=== PATIENT | female | born 1970 | race Caucasian/White ===

== ENCOUNTER → 2018-01-04 | Outpatient (CLI) | payer BC ==
[~2018-01-04] MED LIST: ACE3 PO; AMOX-559 PO; CYCL10TA29 PO; DESO1TAB41 PO; FERR-1 PO; FOLIC ACID PO; HYDR-4225 PO; IBU800 PO; KET10 PO; KETO-58 PO; LOR5/325 PO; LORA-1456 PO; NEXIUM; OXYC-865 PO; PRENATAL VITAMINS; PRO25 PO; PULMICORT; SINGULAIR
--- NOTE | 2018-01-04 10:51 | RADIOLOGY IMAGING REPORT ---
FACILITY: [facility] PATIENT NAME: XAVIER KIM : [id number] MR: [id number] V: [id number] EXAM DATE: ORDERING PHYSICIAN: KACI TOSCANO TECHNOLOGIST: Laura Recio PROCEDURE:BILATERAL DIGITAL SCREENING MAMMOGRAM WITH CAD ASSISTED INTERPRETATION & 3D TOMOSYNTHESIS COMPARISON:Prior mammograms 01/09/16, 04/20/13, 04/13/13. INDICATIONS:SCREENING FINDINGS: Moderately dense heterogeneous fibroglandular tissue is seen throughout the breasts. There is a nodular area of increased density in the inferior aspect of the Right breast in the Right MLO view in the middle 1/3 maybe in the lateral portion Right breast on the Right CC view. Spot compression view is recommended for further evaluation. The parenchymal pattern through the Left breast has remained stable. DIAGNOSTIC CATEGORY 0--INCOMPLETE: NEED ADDITIONAL IMAGING EVALUATION. RECOMMENDATIONS: ADDITIONAL MAMMOGRAPHIC VIEWS REQUIRED: RIGHT BREAST. IMPRESSION: BIRADS 0: Incomplete. Additional view of the Right breast recommended as described. Dictated by: Farida Sánchez M.D. on 01/04/2018 at 10:30 Transcribed by: MILE on 01/04/2018 at 10:43 Approved by: Farida Sánchez M.D. on 01/04/2018 at 10:50 [facility]
== END ==
LOC: MAMO 00:39
PROVIDERS: ATTEND Nurse Practitioner Psychiatric/Mental Health
DX: R92.2 Inconclusive mammogram (principal)
CPT/HCPCS: 77063; 77067

== ENCOUNTER → 2018-03-14 | Outpatient (CLI) | payer BC ==
--- NOTE | 2018-03-15 09:18 | RADIOLOGY IMAGING REPORT ---
FACILITY: [facility] [place] PATIENT NAME: XAVIER KIM : [id number] MR: [id number] V: [id number] EXAM DATE: ORDERING PHYSICIAN: KACI TOSCANO TECHNOLOGIST: Laura Recio PROCEDURE:RIGHT DIGITAL DIAGNOSTIC MAMMOGRAM WITH CAD ASSISTED INTERPRETATION & 3D TOMOSYNTHESIS COMPARISON:Prior mammograms 01/04/18, 01/09/16, 04/20/13, 04/13/13. INDICATIONS:further evaluation FINDINGS: The patient returns for Spot compression views in the Right CC & MLO projections. The focal area of increased density in the inferior portion of the Right breast appeared compressible and apparently represented summation shadow. There is no demonstration of malignant appearing mass or calcification in the Right breast. DIAGNOSTIC CATEGORY 2--BENIGN FINDING. RECOMMENDATIONS: ROUTINE MAMMOGRAM AND CLINICAL EVALUATION. IMPRESSION: BIRADS 2: Benign finding. No significant abnormality is seen. Dictated by: Farida Sánchez M.D. on 03/14/2018 at 16:57 Transcribed by: MILE on 03/15/2018 at 7:52 Approved by: Farida Sánchez M.D. on 03/15/2018 at 9:17 [facility]
== END ==
LOC: MAMO 01:00
PROVIDERS: ATTEND Nurse Practitioner Psychiatric/Mental Health
DX: R92.8 Other abnormal and inconclusive findings on diagnostic imaging of breast (principal)
CPT/HCPCS: 77061; 77065

== ENCOUNTER → 2018-06-06 | Outpatient (CLI) | payer BC ==
--- NOTE | 2018-06-06 09:53 | RADIOLOGY IMAGING REPORT ---
FACILITY: [facility] [place] PATIENT NAME: Radha Oscar : 1970 MR: [id number] V: [id number] EXAM DATE: ORDERING PHYSICIAN: KACI TOSCANO TECHNOLOGIST: Location: [facility] [place] Patient: Radha Oscar : 1970 Visit/Account:[id number] Date of Sevice: 06/06/2018 PELVIC HISTORY: Dysfunctional uterine bleeding TECHNIQUE: Transvaginal and transabdominal ultrasound pelvis. COMPARISON: CT chest seven pelvis December 08, 2014 FINDINGS: Uterus: ; 8.5 cm length x 5.9 cm AP x 6.3 cm transverse. Myometrium: The myometrium appears heterogeneous. There suggestion of adenomyosis. Endometrium: Slightly heterogeneous; double thickness 7.6 mm. Cervix: Grossly negative. Ovaries: Right - 2.9 x 2.3 x 3.4 cm and contains a 1.7 cm simple cyst Left - 2.5 x 1.5 x 2.2 cm Blood flow is documented in each ovary by duplex Doppler ultrasound. Adnexa: Grossly unremarkable. Free pelvic fluid: None. IMPRESSION: Mildly heterogeneous myometrium and endometrium Suggestion of adenomyosis 1.7 cm simple right ovarian cyst Report Dictated By: Farida Sánchez MD at 06/06/2018 9:34 AM Report E-Signed By: Farida Sánchez MD at 06/06/2018 9:48 AM WSN:[id number]
== END ==
LOC: US 05-06 02:45
PROVIDERS: ATTEND Nurse Practitioner Psychiatric/Mental Health
DX: N93.8 Other specified abnormal uterine and vaginal bleeding (principal); N83.291 Other ovarian cyst, right side
CPT/HCPCS: 76830; 76856

== ENCOUNTER 2018-06-17 02:16 | Emergency (ER) | payer BC ==
[2018-06-17] MEDS ORDERED: NS(*) 0.9% 1000 ML BAG 1,000 ML IV ONE (02:36)
--- NOTE | 2018-06-17 02:36 | ER Report ---
History and Physical Time Seen By MD: 02:26 Hx. of Stated Complaint: Patient C/O acute abdominal pain that started Wednesday at 0330 HPI/ROS CHIEF COMPLAINT: abdominal pain HISTORY OF PRESENT ILLNESS: This is a 48 year old female. She has had abdominal pain for about 24 hours now. Worsening. Pain worsens with any movement. No fevers, but she has felt chilled all day. No diarrhea. No dysuria or problems urinating. No chest pain or shortness of breath. Has had a exploratory laparoscopy in the past. Allergies: Coded Allergies: No Known Drug Allergies (Unverified , 06/17/18) Home Meds Active Scripts Oxycodone Hcl/Acetaminophen (PERCOCET 5-325 MG TABLET) 1 Each Tablet, 1 EACH PO Q4H PRN for PAIN, #12 TAB 0 Refills Prov:MARTI MO MD 06/17/18 Sucralfate (SUCRALFATE) 1 Gm Tablet, 1 GM PO QID, #120 TAB 0 Refills Prov:MARTI MO MD 06/17/18 Discontinued Scripts Amoxicillin/Pot Clav 875-125 Mg Tab (AUGMENTIN 875-125 TABLET) 1 Each Tablet, 1 TAB PO Q12H, #10 TAB 0 Refills Prov:MARTI MO MD 12/08/14 Hydroxyzine Hcl (HYDROXYZINE HCL) 25 Mg Tablet, 1-2 TAB PO QHS, #30 TAB 0 R efills Prov:MARTI MO MD 12/08/14 Lorazepam (ATIVAN) 1 Mg Tablet, 1 MG PO QHS PRN for ANXIETY, #20 TAB 0 Refills Prov:MARTI MO MD 12/08/14 Ketorolac Tromethamine (KETOROLAC TROMETHAMINE) 10 Mg Tab, 10 MG PO Q6H, #12 TAB 0 Refills Prov:MARTI MO MD 12/08/14 Oxycodone Hcl/Acetaminophen (PERCOCET 5-325 MG TABLET) 1 Each Tablet, 1 EACH PO Q4H PRN for PAIN, #20 TAB 0 Refills Prov:MARTI MO MD 12/08/14 Reviewed Nurses Notes: Yes Hx Smoking: No Smoking Status: Never Smoker Hx Substance Use Disorder: No Hx Alcohol Use: Yes (6 weekly) Constitutional Physical Exam General Appearance: The patient is alert. Having acute distress. Eyes: Pupils are equal, round. No pallor, injection or icterus. ENT: Mucous membranes are moist. Normal oral mucosa. Posterior oropharynx is normal. Neck: Supple and non tender. Respiratory: Lungs are clear to auscultation. Cardiovascular: Regular rate and rhythm. No murmurs, gallops or rubs. Normal capillary refill. Gastrointestinal: Abdomen is soft, but very tender with rebound and guarding, tenderness worst in the mid periumbilical area and to the right. Nondistended. Hypoactive bowel sounds. No costovertebral angle tenderness with percussion. Neurological: Alert and oriented x3. Skin: Warm and dry. DIFFERENTIAL DIAGNOSIS: After history and physical exam, differential diagnosis was considered for abdominal pain including but not limited to appendicitis, cholecystitis, gastritis and urinary tract infection. Medical Decision Making Data Points Result Diagram: 06/17/18 0229 06/17/18 0229 Laboratory Hematology Test 06/17/18 02:20 06/17/18 02:29 Urine Color Yellow Urine Clarity Slightly-cloudy Urine pH 5.0 pH (4.8-9.5) Urine Specific [place] 1.017 Urine Protein Negative mg/dL (NEGATIVE) Urine Glucose (UA) Negative mg/dL (NEGATIVE) Urine Ketones 20 mg/dL (NEGATIVE) Urine Blood Small (NEGATIVE) Urine Nitrite Negative (NEGATIVE) Urine Bilirubin Negative (NEGATIVE) Urine Urobilinogen Negative mg/dL (0.2-1.9) Urine Leukocyte Esterase Small (NEGATIVE) Urine RBC 2 /HPF (0-2/HPF) Urine WBC 8 /HPF (0-5/HPF) Urine Squamous Epithelial Cells Many /LPF (</=FEW) Urine Bacteria Moderate /HPF (NONE-FEW) Urine Mucus Few /HPF (NONE-FEW) Red Blood Count 5.28 M/uL (4.17-5.56) Mean Corpuscular Volume 87.6 fL (80.0-96.0) Mean Corpuscular Hemoglobin 29.5 pg (26.0-33.0) Mean Corpuscular Hemoglobin Concent 33.7 g/dL (32.0-36.0) Red Cell Distribution Width 13.4 % (11.5-14.5) Mean Platelet Volume 8.5 fL (7.2-11.1) Neutrophils (%) (Auto) 78.6 % (39.4-72.5) Lymphocytes (%) (Auto) 13.7 % (17.6-49.6) Monocytes (%) (Auto) 4.2 % (4.1-12.4) Eosinophils (%) (Auto) 3.0 % (0.4-6.7) Basophils (%) (Auto) 0.5 % (0.3-1.4) Nucleated RBC Relative Count (auto) 0.0 /100WBC Neutrophils # (Auto) 12.4 K/uL (2.0-7.4) Lymphocytes # (Auto) 2.2 K/uL (1.3-3.6) Monocytes # (Auto) 0.7 K/uL (0.3-1.0) Eosinophils # (Auto) 0.5 K/uL (0.0-0.5) Basophils # (Auto) 0.1 K/uL (0.0-0.1) Nucleated RBC Absolute Count (auto) 0.00 K/uL Sodium Level 136 mmol/L (137-145) Potassium Level 4.2 mmol/L (3.5-5.0) Chloride Level 107 mmol/L (98-107) Carbon Dioxide Level 19 mmol/L (22-31) Blood Urea Nitrogen 11 mg/dl (7-18) Creatinine 0.70 mg/dl (0.52-1.04) Glomerular Filtration Rate Calc > 60.0 Random Glucose 120 mg/dl (75-110) Calcium Level 9.3 mg/dl (8.4-10.2) Total Bilirubin 1.1 mg/dl (0.2-1.3) Aspartate Amino Transf (AST/SGOT) 20 U/L (0-35) Alanine Aminotransferase (ALT/SGPT) 33 U/L (0-56) Alkaline Phosphatase 58 U/L (0-126) Total Protein 7.8 g/dl (6.3-8.2) Albumin 4.4 g/dl (3.5-5.0) Amylase Level 46 U/L (0-110) Lipase 102 U/L (23-300) Human Chorionic Gonadotropin, Qual Negative (NEGATIVE) Helicobacter pylori IgG Antibody Negative (NEGATIVE) Chemistry Test 06/17/18 02:20 06/17/18 02:29 Urine Color Yellow Urine Clarity Slightly-cloudy Urine pH 5.0 pH (4.8-9.5) Urine Specific [place] 1.017 Urine Protein Negative mg/dL (NEGATIVE) Urine Glucose (UA) Negative mg/dL (NEGATIVE) Urine Ketones 20 mg/dL (NEGATIVE) Urine Blood Small (NEGATIVE) Urine Nitrite Negative (NEGATIVE) Urine Bilirubin Negative (NEGATIVE) Urine Urobilinogen Negative mg/dL (0.2-1.9) Urine Leukocyte Esterase Small (NEGATIVE) Urine RBC 2 /HPF (0-2/HPF) Urine WBC 8 /HPF (0-5/HPF) Urine Squamous Epithelial Cells Many /LPF (</=FEW) Urine Bacteria Moderate /HPF (NONE-FEW) Urine Mucus Few /HPF (NONE-FEW) White Blood Count 15.8 k/uL (4.5-11.0) Red Blood Count 5.28 M/uL (4.17-5.56) Hemoglobin 15.6 g/dL (12.0-16.0) Hematocrit 46.3 % (34.0-47.0) Mean Corpuscular Volume 87.6 fL (80.0-96.0) Mean Corpuscular Hemoglobin 29.5 pg (26.0-33.0) Mean Corpuscular Hemoglobin Concent 33.7 g/dL (32.0-36.0) Red Cell Distribution Width 13.4 % (11.5-14.5) Platelet Count 271 K/uL (150-450) Mean Platelet Volume 8.5 fL (7.2-11.1) Neutrophils (%) (Auto) 78.6 % (39.4-72.5) Lymphocytes (%) (Auto) 13.7 % (17.6-49.6) Monocytes (%) (Auto) 4.2 % (4.1-12.4) Eosinophils (%) (Auto) 3.0 % (0.4-6.7) Basophils (%) (Auto) 0.5 % (0.3-1.4) Nucleated RBC Relative Count (auto) 0.0 /100WBC Neutrophils # (Auto) 12.4 K/uL (2.0-7.4) Lymphocytes # (Auto) 2.2 K/uL (1.3-3.6) Monocytes # (Auto) 0.7 K/uL (0.3-1.0) Eosinophils # (Auto) 0.5 K/uL (0.0-0.5) Basophils # (Auto) 0.1 K/uL (0.0-0.1) Nucleated RBC Absolute Count (auto) 0.00 K/uL Glomerular Filtration Rate Calc > 60.0 Calcium Level 9.3 mg/dl (8.4-10.2) Total Bilirubin 1.1 mg/dl (0.2-1.3) Aspartate Amino Transf (AST/SGOT) 20 U/L (0-35) Alanine Aminotransferase (ALT/SGPT) 33 U/L (0-56) Alkaline Phosphatase 58 U/L (0-126) Total Protein 7.8 g/dl (6.3-8.2) Albumin 4.4 g/dl (3.5-5.0) Amylase Level 46 U/L (0-110) Lipase 102 U/L (23-300) Human Chorionic Gonadotropin, Qual Negative (NEGATIVE) Helicobacter pylori IgG Antibody Negative (NEGATIVE) Urinalysis Test 06/17/18 02:20 Urine Color Yellow Urine Clarity Slightly-cloudy Urine pH 5.0 pH (4.8-9.5) Urine Specific [place] 1.017 Urine Protein Negative mg/dL (NEGATIVE) Urine Glucose (UA) Negative mg/dL (NEGATIVE) Urine Ketones 20 mg/dL (NEGATIVE) Urine Blood Small (NEGATIVE) Urine Nitrite Negative (NEGATIVE) Urine Bilirubin Negative (NEGATIVE) Urine Urobilinogen Negative mg/dL (0.2-1.9) Urine Leukocyte Esterase Small (NEGATIVE) Urine RBC 2 /HPF (0-2/HPF) Urine WBC 8 /HPF (0-5/HPF) Urine Squamous Epithelial Cells Many /LPF (</=FEW) Urine Bacteria Moderate /HPF (NONE-FEW) Urine Mucus Few /HPF (NONE-FEW) EKG/Imaging Imaging EXAMINATION: Abdomen and pelvis CT with contrast HISTORY: Periumbilical pain, right-sided abdominal pain. TECHNIQUE: CT was performed through the abdomen and pelvis following injection of iodinated intravenous contrast. Sagittal and coronal MPR reformatted images were generated. 75 mL isovue 370 injected. One of the following dose optimization techniques was utilized in the performance of this exam: automated exposure control; adjustment of the mA and/or kV according to patient size; or use of iterative reconstruction techn ique. Specific details can be referenced in the facility's radiology CT exam operational policy. COMPARISON: December 08, 2014 FINDINGS: Lower chest: Normal. Spleen: Normal. Adrenal glands: Normal. Pancreas: Normal. Kidneys: Normal. Gallbladder: Normal. Liver: 2 closely positioned approximately 6 mm hepatic hypodensities, axial image 67 are either new or better visualized on current exam. Right hepatic lobe cyst, image 73 is unchanged. Additional cyst adjacent to the gallbladder has increased in size now measuring 2.6 cm. Left hepatic lobe cyst has increased in size now measuring 9 mm, image 26. A few additional subcentimeter hepatic hypodensities for example image 31, 44, 46 and 55 are either new or more visible on current exam. Vessels: Normal. Lymph node assessment: Normal. Bowel including small bowel, colon and appendix: There is abnormal wall thickening involving the gastric antrum and first portion of the duodenum with adjacent fat stranding and a small amount of adjacent nonrim-enhancing fluid which is partially positioned adjacent to the liver, axial image 62. No apparent free air. Small duodenal diverticulum noted just inferior to the pancreatic head. Otherwise normal small bowel. Normal appendix. Normal colon. Peritoneum / retroperitoneum / mesentery: See comments above. Pelvic structures: Normal bladder trace pelvic fluid. Enlarged and heterogeneous uterus has increased in size with suggestion of underlying potential left-sided fibroid, axial image 138. Normal rectum. Small right ovarian corpus luteum cyst. No enlarged lymph nodes. Body wall: Normal. Musculoskeletal: No fracture or osseous destruction. IMPRESSION: 1. New abnormal moderate gastric antrum and proximal duodenal wall thickening with adjacent inflammatory fat stranding, findings concerning for infectious or inflammatory gastritis/duodenitis. Malignant wall thickening is felt less likely but cannot be entirely excluded. Recommend GI consultation. 2. Small amount of nonrim-enhancing fluid adjacent to these areas partially abuts the liver and is favored represent reactive fluid and less likely an abscess. Short-term CT follow-up may be warranted to ensure resolution. 3. Multiple hepatic cysts a few of which have increased in size. There are a few additional subcentimeter hepatic hypodensities which are either new or are better visualized compared to the 2015 CT. These are favored to represent benign cysts. Follow-up CT may be warranted in 3 months to document stability especially if the gastric/duodenal abnormality is determined to be malignant. 3. Enlarged uterus has increased in size with suggestion of underlying fibroids. Follow-up ultrasound may be warranted for further characterization. Results were called to MARTI CHELY on 06/17/2018 5:14 AM. Report Dictated By: Ronnie Abdi MD at 06/17/2018 4:54 AM ED Course/Re-evaluation Clinical Indication for ER IV: Hydration, IV Access ED Course Reviewed labs and imaging results with the patient. Duodenitis and gastritis as noted. Labs unremarkable including negative H pylori. GI cocktail with minimal results. Increase Omeprazole and start Carafate. She is going to be seeing the GI specialist this next week and recommended calling to let them know of this new problem as well to plan for upper endoscopy. Pain medication for home use while starting on the higher dose of PPI and Carafate. Follow-up sooner if needed. Decision to Disposition Date: Jun 17, 2018 Decision to Disposition Time: 06:47 Depart Departure Latest Vital Signs Impression: Primary Impression: Gastritis and duodenitis Condition: Condition Unchanged Disposition: HOME OR SELF-CARE Referrals: KACI TOSCANO (PCP) New Scripts Oxycodone Hcl/Acetaminophen (PERCOCET 5-325 MG TABLET) 1 Each Tablet 1 EACH PO Q4H PRN for PAIN, #12 TAB 0 Refills Prov: MARTI MO MD 06/17/18 Sucralfate (SUCRALFATE) 1 Gm Tablet 1 GM PO QID, #120 TAB 0 Refills Prov: MARTI MO MD 06/17/18 Patient Instructions: Diet for Stomach Ulcers and Gastritis (ED), Duodenitis (ED), Gastritis (ED) Additional Instructions: Increase your Omeprazole 40mg to twice a day. Start Sucralfate 1g tablets four times a day. Take Percocet 5/325, one every 4 hours as needed for pain. Call Dr. Dash and let him know you were seen here tonight and follow-up with him for further evaluation and consideration for upper endoscopy. Avoid any anti-inflammatories (Advil, Motrin, Ibuprofen, Aleve, Naproxen, Aspirin) for now. Avoid spicy foods, acidic foods, caffeine, chocolate. You can use antacids like Tums or Maalox as needed for any stomach pain. MARTI MO MD Jun 17, 2018 02:36
[2018-06-17] MEDS ORDERED: ONDANSETRON 4 MG/2 ML VIAL IVP ONE (02:40)
[2018-06-17] MEDS ORDERED: MORPHINE 4 MG/ML SDV IVP ONE (02:40)
[2018-06-17 02:49] LABS: PLATELET COUNT, AUTOMATED 271 K/uL (150-450)
[2018-06-17] MEDS ORDERED: IOPAMIDOL 76% 50 ML INFUS BTL 100 ML ONE (02:59)
[2018-06-17] MEDS ORDERED: MORPHINE 2 MG/ML SYR IVP ONE ×2 (03:30→04:55)
[2018-06-17] MEDS ORDERED: PANTOPRAZOLE SOD 40 MG IV VIAL IVP ONE (06:10)
[2018-06-17] MEDS ORDERED: ATRO/SCOPOL/HYOSCY/PB 5 ML ELX PO ONE (06:10)
[2018-06-17] MEDS ORDERED: LIDOCAINE 2% VISC SLN 15ML UDC PO ONE (06:10)
[2018-06-17] MEDS ORDERED: MAG HYD/AL HYD/SIMETH 30ML UDC PO ONE (06:10)
[2018-06-17 06:30] VITALS: BP 117/66
[2018-06-17] MEDS ORDERED: SUCR1TAB51 PO (06:48)
[2018-06-17] MEDS ORDERED: OXYC-865 PO (06:48)
[2018-06-17] MEDS ORDERED: oxyCODONE/ACETAMIN 5/325MG TH 2 TAB/BOTTLE PO ONE (06:55)
[2018-06-17] MEDS ORDERED: SUCRALFATE 1 GM TAB PO ONE (06:55)
--- NOTE | 2018-06-20 08:47 | RADIOLOGY IMAGING REPORT ---
FACILITY: [facility] PATIENT NAME: Radha Oscar : 1970 MR: [id number] V: [id number] EXAM DATE: ORDERING PHYSICIAN: MARTI MO TECHNOLOGIST: Location: [facility] Patient: Radha Oscar : 1970 Visit/Account:[id number] Date of Sevice: 06/17/2018 EXAMINATION: Abdomen and pelvis CT with contrast HISTORY: Periumbilical pain, right-sided abdominal pain. TECHNIQUE: CT was performed through the abdomen and pelvis following injection of iodinated intrave nous contrast. Sagittal and coronal MPR reformatted images were generated. 75 mL isovue 370 injected . One of the following dose optimization techniques was utilized in the performance of this exam: autom ated exposure control; adjustment of the mA and/or kV according to patient size; or use of iterative reconstruction technique. Specific details can be referenced in the facility's radiology CT exam ope rational policy. COMPARISON: December 08, 2014 FINDINGS: Lower chest: Normal. Spleen: Normal. Adrenal glands: Normal. Pancreas: Normal. Kidneys: Normal. Gallbladder: Normal. Liver: 2 closely positioned approximately 6 mm hepatic hypodensities, axial image 67 are either new o r better visualized on current exam. Right hepatic lobe cyst, image 73 is unchanged. Additional cyst adjacent to the gallbladder has increased in size now measuring 2.6 cm. Left hepatic lobe cyst has in creased in size now measuring 9 mm, image 26. A few additional subcentimeter hepatic hypodensities fo r example image 31, 44, 46 and 55 are either new or more visible on current exam. Vessels: Normal. Lymph node assessment: Normal. Bowel including small bowel, colon and appendix: There is abnormal wall thickening involving the dex nannette antrum and first portion of the duodenum with adjacent fat stranding and a small amount of adjace nt nonrim-enhancing fluid which is partially positioned adjacent to the liver, axial image 62. No moe arent free air. Small duodenal diverticulum noted just inferior to the pancreatic head. Otherwise nor mal small bowel. Normal appendix. Normal colon. Peritoneum / retroperitoneum / mesentery: See comments above. Pelvic structures: Normal bladder trace pelvic fluid. Enlarged and heterogeneous uterus has increa sed in size with suggestion of underlying potential left-sided fibroid, axial image 138. Normal rectu m. Small right ovarian corpus luteum cyst. No enlarged lymph nodes. Body wall: Normal. Musculoskeletal: No fracture or osseous destruction. IMPRESSION: 1. New abnormal moderate gastric antrum and proximal duodenal wall thickening with adjacent inflammat ory fat stranding, findings concerning for infectious or inflammatory gastritis/duodenitis. Malignant wall thickening is felt less likely but cannot be entirely excluded. Recommend GI consultation. 2. Small amount of nonrim-enhancing fluid adjacent to these areas partially abuts the liver and is fa vored represent reactive fluid and less likely an abscess. Short-term CT follow-up may be warranted to ensure resolution. 3. Multiple hepatic cysts a few of which have increased in size. There are a few additional subcentim eter hepatic hypodensities which are either new or are better visualized compared to the 2015 CT. The se are favored to represent benign cysts. Follow-up CT may be warranted in 3 months to document stabi lity especially if the gastric/duodenal abnormality is determined to be malignant. 3. Enlarged uterus has increased in size with suggestion of underlying fibroids. Follow-up ultrasound may be warranted for further characterization. Results were called to MARTI MO on 06/17/2018 5:14 AM. Report Dictated By: Ronnie Abdi MD at 06/17/2018 4:54 AM Report E-Signed By: Ronnie Abdi MD at 06/17/2018 5:16 AM WSN:[id number]
== END 2018-06-17 07:11 | disposition home or self-care (01) ==
LOC: ER 03:20
DX: K29.70 Gastritis, unspecified, without bleeding (principal); K29.80 Duodenitis without bleeding
CPT/HCPCS: 74177; 81001; 82150; 83690; 84703; 85025; 86677; 96361; 96374; 96375; 96376; 99284; C9113; J2270; J2405; J7030; Q9967; 82040; 82247; 82310; 82374; 82435; 82565; 82947; 84075; 84132; 84155; 84295; 84450; 84460; 84520

== ENCOUNTER 2018-10-18 00:13 | Day surgery (SDC) | payer BC ==
[~2018-10-18] VITALS: Ht 170.2 cm; Wt 103.0 kg
[~2018-10-18 00:13] MED LIST changes: +ALBU8.5H IH; +LAMO100T56 PO; +LAMO25TA64 PO; +OMEP40CA48 PO; +SUCR1TAB51 PO
[2018-10-18 06:07] VITALS: BP 109/66
[2018-10-18] MEDS ORDERED: NORMOSOL R SOLN(*) 1000 ML BAG 1,000 ML IV PRN (06:30)
[2018-10-18] MEDS ORDERED: LIDOCAINE/SOD BICARB 8.4% SYR ID ONE (06:30)
[2018-10-18] MEDS ORDERED: KETAMINE HCL 200 MG/20 ML MDV ONE (07:09)
[2018-10-18] MEDS ORDERED: PROPOFOL EMUL(*) 10MG/ML 20 ML 40 ML ONE (07:14)
[2018-10-18] MEDS ORDERED: LIDOCAINE MPF 1% 5 ML VIAL ONE (07:14)
[2018-10-18 08:18] VITALS: BP 113/82
[2018-10-18 08:29] VITALS: BP 108/69
--- NOTE | 2018-10-18 08:30 | Short(Outpt) Discharge Summary ---
Discharge Summary Reason for Hosp/Final Diag: (1) Diarrhea Hospital Course & Plan: pt presented for egd and colonoscopy. she tolerated the procedures well. path pending. she will be discharged home when criteria met. (2) Gastritis and duodenitis Status: Acute Departure Discharge to: Home Discharge Instructions Home Meds Reported Medications Albuterol Sulfate 90 Mcg/Act (PROAIR HFA 90 MCG/ACT) 8.5 Gm Hfa.aer.ad, 1-2 PUFF IH 3-4XD PRN for WHEEZING, INHALER 10/13/18 Lamotrigine (LAMICTAL) 100 Mg Tablet, 100 MG PO DAILY 10/13/18 Omeprazole (OMEPRAZOLE) 40 Mg Capsule.dr, 40 MG PO BID, CAP 08/23/18 Discontinued Reported Medications Lamotrigine (LAMICTAL) 25 Mg Tablet, 25 MG PO DAILY 08/23/18 Diet: Regular Activity: As Tolerated Special Instructions: we will call you in 10 days with biopsy results SCOOTER JAMES October 18, 2018 08:30
[2018-10-18 08:31] VITALS: BP 102/66
--- NOTE | 2018-10-18 08:35 | NUR ---
0812 PT ARRIVED TO MD VIA CART, SBAR FROM [facility] AND DR. MABRY, VSS, PT CONVERSING, IN LOW SF POSITION, PASSING GAS, 800ML UP OF SECOND BAG 0829 PT WOULD LIKE TO GET UP TO USE RESTROOM, ORTHOSTATICS DONE, STEADY ON FEET, DENIES LIGHTHEADEDNESS OR DIZZINESS 0832 PT TO RESTROOM, VOIDED WITHOUT DIFFICULTY, ON RA, STEADY ON FEET 0835 PT TOLERATING COFFEE, BACK TO BED, BACK ON CONTINUOUS PULSE OX, DROPS OCCASIONALLY, BACK ON 2L MASK
--- NOTE | 2018-10-19 07:55 | OPERATIVE REPORT 1 ---
EVENT DATE: October 18, 2018 SURGEON: Gianluca Roque MD ANESTHESIOLOGIST: Danyel Hawkins MD ANESTHESIA: MAC. PREOPERATIVE DIAGNOSIS Diarrhea, dysphagia, abdominal pain and history of colon polyps. POSTOPERATIVE DIAGNOSIS Diarrhea, dysphagia, abdominal pain and history of colon polyps. PROCEDURE PERFORMED 1. Esophagogastroduodenoscopy documented in [facility]. 2. Colonoscopy will be dictated here. FLUIDS IV crystalloid. ESTIMATED BLOOD LOSS None. SPECIMENS Polyps x2 from the sigmoid colon and random biopsies from the terminal ileum, colon and rectum. COMPLICATIONS None. INDICATIONS This is a 48-year old female with diarrhea, abdominal pain, history of colon polyps and dysphagia. EGD was performed and documented in [facility]. Colonoscopy was documented here. DESCRIPTION OF PROCEDURE Patient was taken to the GI suite, placed in the supine position. MAC anesthesia was administered per the Anesthesia team. After the EGD was performed, we then performed the colonoscopy. Perianal exam and digital rectal exam were unremarkable. Colonoscope was then advanced through the anus to the cecum under direct vision. It was then advanced into the terminal ileum. The terminal ileum mucosa appeared normal when biopsy was taken. The scope was withdrawn. Appendiceal orifice and the ileocecal valve were seen. The scope was withdrawn along the length of the colon and the entire mucosa was examined. Random colon biopsies were taken as well as a biopsy from the rectum. In the sigmoid colon, there was a 6 mm pedunculated polyp and a 3 mm sessile polyp. Both were removed with snare. Both were retrieved. Removal was complete. There was no bleeding. Continued to withdraw the colonoscopy. Carbon dioxide was suctioned from the rectum prior to withdrawing the scope. Patient tolerated the procedure well. There were no complications. MTDD
== END 2018-10-18 09:04 | disposition home or self-care (01) ==
LOC: OR 00:13
PROVIDERS: ATTEND Surgery
DX: D12.5 Benign neoplasm of sigmoid colon (principal); Z86.010 Personal history of colon polyps; K22.2 Esophageal obstruction; K44.9 Diaphragmatic hernia without obstruction or gangrene; K21.0 Gastro-esophageal reflux disease with esophagitis; K29.70 Gastritis, unspecified, without bleeding; K29.80 Duodenitis without bleeding; K21.9 Gastro-esophageal reflux disease without esophagitis
CPT/HCPCS: 00813; 43239; 43249; 45380; 45385; 81025; 87077; 88305; 88313; 88342; C1726; J2001; J2704; J3490